=== PATIENT | male | born 1935 | race Caucasian/White ===

== ENCOUNTER 2022-06-02 09:44 | Emergency (ER) | payer SELFPAY ==
[2022-06-02 10:03] LABS: Absolute Lymphocytes (CBC) 0.6 K/uL (0.7-4.9); Hematocrit 39.9 % (39.6-49.0); Lymphocytes % 4.9 % (15.3-44.8); MCV 87.6 fL (80-100); MPV 7.5 fL (7.6-11.3); RBC Red Blood Cell Count 4.55 M/uL (4.33-5.43)
--- NOTE | 2022-06-02 10:13 | RAD REPORT ---
EXAM DESCRIPTION: Jaymie Single View06/02/2022 10:01 am CLINICAL HISTORY: SOB COMPARISON: None available TECHNIQUE: Portable AP view of the chest. FINDINGS: The lungs show no focal consolidation. Mild perihilar interstitial opacities. No pneumotho rax or effusion. The cardiomediastinal contours are unremarkable. IMPRESSION: Mild perihilar interstitial opacities which could reflect atelectasis, reactive airway c hanges, or mild central congestion.
[2022-06-02 10:23] LABS: Potassium 3.9 mEq/L (3.5-5.1); Troponin High Sensitivity 14.7 pg/mL (<58.9)
[2022-06-02] MEDS ORDERED: ACETAMINOPHEN 325 MG TABLET ONE (11:09)
--- NOTE | 2022-06-02 12:49 | ER ---
Nurse's Notes [facility] Name: Juan José Miles Age: 86 yrs Sex: Male : 1935 Arrival Date: 06/02/2022 Time: 09:46 Bed 14 Private MD: Diagnosis: Shortness of breath;Mild intermittent asthma with (acute) exacerbation-resolved Presentation: 06/02 09:46 Chief complaint: EMS states: they were toned out for respiratory distress and cough. kc6 upon arrival patient was 94% on room air. patient is from [place] and tested positive for covid on Friday at the [facility]. BGL en route 161. Coronavirus screen: Vaccine status: Patient reports receiving the 2nd dose of the covid vaccine. Ebola Screen: No symptoms or risks identified at this time. Initial Sepsis Screen: Does the patient meet any 2 criteria? No. Patient's initial sepsis screen is negative. Does the patient have a suspected source of infection? No. Patient's initial sepsis screen is negative. Risk Assessment: Do you want to hurt yourself or someone else? Patient reports no desire to harm self or others. Onset of symptoms was June 02, 2022. 09:46 Method Of Arrival: EMS: [facility] kc6 09:46 Acuity: COLTON 3 kc6 Triage Assessment: 09:48 General: Appears in no apparent distress. comfortable, Behavior is calm, cooperative, kc6 appropriate for age. Pain: Denies pain. EENT: No signs and/or symptoms were reported regarding the EENT system. Neuro: Barnes Agitation-Sedation Scale (RASS): 0 - Alert and Calm Level of Consciousness is awake, alert, obeys commands, Oriented to person, place, time, situation, Appropriate for age. Cardiovascular: Denies chest pain, Heart tones S1 S2 present Capillary refill < 3 seconds Rhythm is sinus tachycardia. Respiratory: Reports cough that is non-productive, Airway is patent Trachea midline Respiratory effort is even, unlabored, Respiratory pattern is regular, agonal Breath sounds with crackles bilaterally. Onset: The symptoms/episode began/occurred today, the patient has mild shortness of breath. GI: No signs and/or symptoms were reported involving the gastrointestinal system. : No signs and/or symptoms were reported regarding the genitourinary system. Derm: No signs and/or symptoms reported regarding the dermatologic system. Skin is intact, Skin is pink, warm \T\ dry. Musculoskeletal: No signs and/or symptoms reported regarding the musculoskeletal system. Circulation, motion, and sensation intact. Capillary refill < 3 seconds, Range of motion: intact in all extremities. Historical: - Allergies: 09:48 No Known Allergies; kc6 - Home Meds: 09:53 lansoprazole 15 mg oral capsule,delayed release (e.c.) [Active]; paracetamol 500 mg kc6 [Active]; prednisolone 5 mg oral tablet [Active]; salbutamol 100 mcg inhaler [Active]; montelukast 10 mg oral tablet [Active]; adcal-D3 750mg/200U tablets [Active]; alendronic acid 70 mg [Active]; candesartan 4 mg oral tablet [Active]; bendoflumethiazide 2.5mg [Active]; ezetimibe 10 mg oral tablet [Active]; fluticasone propionate nasal [Active]; fostair 100 mcg [Active]; - PMHx: 09:48 Hypertensive disorder; Asthma; kc6 - PSHx: 09:48 Tonsillectomy; kc6 - Immunization history:: Client reports receiving the 2nd dose of the Covid vaccine, Flu vaccine is up to date. - Social history:: Smoking status: Patient denies any tobacco usage or history of. Screenin:50 [facility] ED Fall Risk Assessment (Adult) History of falling in the last 3 months, kc6 including since admission No falls in past 3 months (0 pts) Confusion or Disorientation No (0 pts) Intoxicated or Sedated No (0 pts) Impaired Gait No (0 pts) Mobility Assist Device Used No (0 pt) Altered Elimination No (0 pt) Score/Fall Risk Level 0 - 2 = Low Risk Oriented to surroundings, Maintained a safe environment, Educated pt \T\ family on fall prevention, incl call for assistance when getting out of bed, Assessed \T\ reinforced patient's understanding of fall precautions, Hourly rounding (assess needs \T\ fall precautionary measures) done. Abuse screen: Denies threats or abuse. Denies injuries from another. Nutritional screening: No deficits noted. Tuberculosis screening: No symptoms or risk factors identified. Assessment: 09:46 Reassessment: please see triage assessment. Cardiovascular: Heart tones S1 S2 present kc6 Capillary refill < 3 seconds Rhythm is sinus rhythm. 10:46 Reassessment: Patient appears in no apparent distress at this time. No changes from kc6 previously documented assessment. Patient and/or family updated on plan of care and expected duration. Pain level reassessed. Patient is alert, oriented x 3, equal unlabored respirations, skin warm/dry/pink. 11:46 Reassessment: Patient appears in no apparent distress at this time. No changes from kc6 previously documented assessment. Patient and/or family updated on plan of care and expected duration. Pain level reassessed. Patient is alert, oriented x 3, equal unlabored respirations, skin warm/dry/pink. 12:46 Reassessment: Patient appears in no apparent distress at this time. No changes from kc6 previously documented assessment. Patient and/or family updated on plan of care and expected duration. Pain level reassessed. Patient is alert, oriented x 3, equal unlabored respirations, skin warm/dry/pink. Vital Signs: 09:46 BP 137 / 79; Pulse 101; Resp 18 S; Temp 100.7(O); Pulse Ox 93% on R/A; Weight 63.5 kg kc6 (R); Height 5 ft. 5 in. (R); 10:29 BP 129 / 83; Pulse 92; Resp 17 S; Pulse Ox 94% on R/A; kc6 12:08 BP 130 / 71; Pulse 81; Resp 19 S; Pulse Ox 98% on R/A; kc6 12:47 BP 126 / 74; Pulse 85; Resp 19 S; Pulse Ox 93% on R/A; kc6 09:46 Body Mass Index 23.30 (63.50 kg, 165.1 cm) kc6 ED Course: 09:46 Patient arrived in ED. kc6 09:48 Triage completed. kc6 09:48 Arm band placed on. kc6 09:50 Keith Wilkinson MD is Attending Physician. kdr 09:50 Inserted saline lock: 22 gauge in right antecubital area, using aseptic technique. tm3 09:50 Patient has correct armband on for positive identification. Placed in gown. Bed in low kc6 position. Call light in reach. Side rails up X 1. Adult w/ patient. 09:52 Duyen Blanca RN is Primary Nurse. kc6 09:56 Initial lab(s) drawn, by me, sent to lab. tm3 10:02 XRAY Chest (1 view) In Process Unspecified. EDMS 12:07 Troponin High Sensitivity: Draw tow hours after first draw Sent. kc6 Administered Medications: 11:08 Drug: Acetaminophen PO 650 mg Route: PO; kc6 12:07 Follow up: Response: No adverse reaction kc6 Outcome: 12:49 Discharge ordered by . selena Signatures: Dispatcher [employer] EDMS Sunil Russell tm3 Keith Wilkinson MD MD kdr Duyen Blanca RN RN kc6
--- NOTE | 2022-06-02 12:49 | EDPHYS ---
Physician Documentation [facility] Name: Juan José Miles Age: 86 yrs Sex: Male : 1935 Arrival Date: 06/02/2022 Time: 09:46 Bed 14 Private MD: ED Physician Keith Wilkinson HPI: 06/02 11:37 This 86 yrs old Male presents to ER via EMS with complaints of Cough, Shortness Of kdr Breath. 11:37 The patient or guardian reports difficulty breathing. Onset: The symptoms/episode kdr began/occurred last night. Severity of symptoms: At their worst the symptoms were moderate, severe, just prior to arrival, last night, in the emergency department the symptoms have resolved. Modifying factors: The symptoms are alleviated by nothing, the symptoms are aggravated by nothing. Associated signs and symptoms: The patient has no apparent associated signs or symptoms. The patient has not experienced similar symptoms in the past. The patient has not recently seen a physician, The patient is visiting here from the [facility]. Historical: - Allergies: 09:48 No Known Allergies; kc6 - Home Meds: 09:53 lansoprazole 15 mg oral capsule,delayed release (e.c.) [Active]; paracetamol 500 mg kc [Active]; prednisolone 5 mg oral tablet [Active]; salbutamol 100 mcg inhaler [Active]; montelukast 10 mg oral tablet [Active]; adcal-D3 750mg/200U tablets [Active]; alendronic acid 70 mg [Active]; candesartan 4 mg oral tablet [Active]; bendoflumethiazide 2.5mg [Active]; ezetimibe 10 mg oral tablet [Active]; fluticasone propionate nasal [Active]; fostair 100 mcg [Active]; - PMHx: 09:48 Hypertensive disorder; Asthma; kc6 - PSHx: 09:48 Tonsillectomy; kc6 - Immunization history:: Client reports receiving the 2nd dose of the Covid vaccine, Flu vaccine is up to date. - Social history:: Smoking status: Patient denies any tobacco usage or history of. ROS: 11:37 Constitutional: Negative for fever, chills, and weight loss, Eyes: Negative for injury, kdr pain, redness, and discharge, ENT: Negative for injury, pain, and discharge, Neck: Negative for injury, pain, and swelling, Cardiovascular: Negative for chest pain, palpitations, and edema, Abdomen/GI: Negative for abdominal pain, nausea, vomiting, diarrhea, and constipation, Back: Negative for injury and pain, : Negative for injury, bleeding, discharge, and swelling, MS/Extremity: Negative for injury and deformity, Skin: Negative for injury, rash, and discoloration, Neuro: Negative for headache, weakness, numbness, tingling, and seizure activity. Psych: Negative for depression, anxiety, suicide ideation, homicidal ideation, and hallucinations, Allergy/Immunology: Negative for hives, rash, and allergies, Endocrine: Negative for neck swelling, polydipsia, polyuria, polyphagia, and marked weight changes, Hematologic/Lymphatic: Negative for swollen nodes, abnormal bleeding, and unusual bruising. 11:37 Respiratory: Positive for cough, dyspnea on exertion, shortness of breath, at rest. Negative for hemoptysis, orthopnea, pleurisy, wheezing. Exam: 11:37 Constitutional: This is a well developed, well nourished patient who is awake, alert, kdr and in no acute distress. Head/Face: Normocephalic, atraumatic. Eyes: Pupils equal round and reactive to light, extra-ocular motions intact. Lids and lashes normal. Conjunctiva and sclera are non-icteric and not injected. Cornea within normal limits. Periorbital areas with no swelling, redness, or edema. Neck: Trachea midline, no thyromegaly or masses palpated, and no cervical lymphadenopathy. Supple, full range of motion without nuchal rigidity, or vertebral point tenderness. No Meningismus. Chest/axilla: Normal chest wall appearance and motion. Nontender with no deformity. No lesions are appreciated. Cardiovascular: Regular rate and rhythm with a normal S1 and S2. No gallops, murmurs, or rubs. Normal PMI, no JVD. No pulse deficits. Respiratory: Lungs have equal breath sounds bilaterally, clear to auscultation and percussion. No rales, rhonchi or wheezes noted. No increased work of breathing, no retractions or nasal flaring. Abdomen/GI: Soft, non-tender, with normal bowel sounds. No distension or tympany. No guarding or rebound. No evidence of tenderness throughout. Back: No spinal tenderness. No costovertebral tenderness. Full range of motion. Skin: Warm, dry with normal turgor. Normal color with no rashes, no lesions, and no evidence of cellulitis. MS/ Extremity: Pulses equal, no cyanosis. Neurovascular intact. Full, normal range of motion. Neuro: Awake and alert, GCS 15, oriented to person, place, time, and situation. Cranial nerves II-XII grossly intact. Motor strength 5/5 in all extremities. Sensory grossly intact. Cerebellar exam normal. Normal gait. Psych: Awake, alert, with orientation to person, place and time. Behavior, mood, and affect are within normal limits. Vital Signs: 09:46 BP 137 / 79; Pulse 101; Resp 18 S; Temp 100.7(O); Pulse Ox 93% on R/A; Weight 63.5 kg kc6 (R); Height 5 ft. 5 in. (R); 10:29 BP 129 / 83; Pulse 92; Resp 17 S; Pulse Ox 94% on R/A; kc6 12:08 BP 130 / 71; Pulse 81; Resp 19 S; Pulse Ox 98% on R/A; kc6 12:47 BP 126 / 74; Pulse 85; Resp 19 S; Pulse Ox 93% on R/A; kc6 09:46 Body Mass Index 23.30 (63.50 kg, 165.1 cm) kc6 MDM: 11:37 Data reviewed: vital signs, nurses notes, lab test result(s), radiologic studies. kdr Consideration of Admission/Observation Escalation of care including admission/observation considered. 12:49 Patient medically screened. [facility] 06/02 09:52 Order name: Cardiac monitoring; Complete Time: 09:52 [facility] 06/02 09:52 Order name: EKG - Nurse/Tech; Complete Time: 09:52 [facility] 06/02 09:52 Order name: IV Saline Lock; Complete Time: 09:52 [facility] 06/02 09:52 Order name: Labs collected and sent; Complete Time: 09:52 [facility] 06/02 09:52 Order name: O2 Per Protocol; Complete Time: 09:52 [facility] 06/02 09:52 Order name: O2 Sat Monitoring; Complete Time: 09:52 [facility] 06/02 09:52 Order name: EKG; Complete Time: 09:53 [facility] 06/02 09:52 Order name: Basic Metabolic Panel; Complete Time: 10:52 [facility] 06/02 09:52 Order name: CBC with Diff; Complete Time: 10: [facility] 06/02 09:52 Order name: NT PRO-BNP; Complete Time: : [facility] 06/02 09:52 Order name: Troponin HS; Complete Time: 10: [facility] 06/02 09:52 Order name: XRAY Chest (1 view); Complete Time: 10: [facility] 06/02 11:09 Order name: Troponin High Sensitivity: Draw tow hours after first draw; Complete Time: kdr 12:47 Administered Medications: 11:08 Drug: Acetaminophen PO 650 mg Route: PO; kc6 12:07 Follow up: Response: No adverse reaction kc6 Disposition Summary: 06/02/22 12:49 Discharge Ordered Location: Home kdr Problem: an acute exacerbation kdr Symptoms: have improved kdr Condition: Stable kdr Diagnosis - Shortness of breath kdr - Mild intermittent asthma with (acute) exacerbation - resolved kdr Followup: kdr - With: Private Physician - When: 48 Hours - Reason: If symptoms return, Further diagnostic work-up, Recheck today's complaints, Continuance of care, Re-evaluation by your physician Forms: - Medication Reconciliation Form kdr - Thank You Letter kdr - Antibiotic Education kdr - Prescription Opioid Use kdr Signatures: Dispatcher [employer] EDMS Keith Wilkinson MD MD kdr Duyen Blanca RN RN kc6
[2022-06-02 15:13] VITALS: TEMP 100.7
[2022-06-02 15:16] VITALS: BP 126/74; O2SAT 93
--- NOTE | 2022-06-03 17:36 | EKG ---
Test Date: 2022-06-02 Test Time: 10:01:33 Cookie Padder: ELA MEASUREMENT RESULTS: Intervals: Rate: 96 MA: 154 QRSD: 88 QT: 360 QTc: 454 [place]: P: 35 MA: 154 QRS: -65 T: 52 INTERPRETIVE STATEMENTS: Normal sinus rhythm Left anterior fascicular block Possible Anterior infarct, age undetermined Abnormal ECG No previous ECG available for comparison Electronically Signed On 06-03-22 17:35:28 CDT by Juan Pablo Whelan
== END 2022-06-02 13:00 | disposition home or self-care (01) ==
LOC: ER 09:44
DX: J45.21 Mild intermittent asthma with (acute) exacerbation (principal)
CPT/HCPCS: 36415; 71045; 80048; 83880; 84484; 85025; 93005; 99284